=== PATIENT | male | born 1955 | race Caucasian/White ===

== ENCOUNTER 2024-07-02 18:56 | Emergency (ER) | payer OTHER, SELFPAY ==
[2024-07-02] VITALS (13 sets, daily range): BP systolic 140–182; BP diastolic 73–94; PULSE 57–73; RESP 14–21; TEMP 36.4; O2SAT 95–99
--- NOTE | ~2024-07-02 | XR_ITS ---
XR chest 2V DATE: 07/02/2024 19:20 INDICATION: Chest pain TECHNIQUE: PA and lateral views COMPARISON: None FINDINGS: Normal heart size. No hilar or mediastinal enlargement. Minimal thoracic aortic tortuosity. No pulmonary infiltrate or consolidation, pleural effusion or pulmonary vascular congestion or pneumo thorax is detected. Nipple shadows overlie the lower lung desai. Probable old lateral right fourth and fifth healed rib fractures. 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 Degenerative spurring of the thoracic spine. IMPRESSION: No active cardiopulmonary disease Reviewed, dictated and finalized at location A.
--- NOTE | 2024-07-02 18:58 | ECG_ITS ---
Test Date: 2024-07-02 19:08:04 Measurements Intervals [place] Rate: 75 P: 62 WA: 215 QRS: 40 QRSD: 102 T: 38 QT: 389 QTc: 435 Interpretive Statements SINUS RHYTHM WITH FIRST DEGREE AV BLOCK POSSIBLE RIGHT VENTRICULAR CONDUCTION DELAY [RSR (QR) IN V1/V2] POSSIBLE LEFT VENTRICULAR HYPERTROPHY [VOLTAGE CRITERIA PLUS LAE OR QRS WIDENING] No previous ECG available for comparison Electronically Signed On 07-03-2024 10:54:57 CDT by Edwin Paul M.D.
--- NOTE | 2024-07-02 19:04 | ED_ITS ---
HPI - Chest Pain General Chief Complaint: Chest Pain Stated Complaint: chest pain since yesterday Time Seen by Provider: 07/02/24 19:04 Source: patient and family Mode of arrival: ambulatory Limitations: no limitations History of Present Illness HPI narrative: patient presents with complaint of chest pain. He described yesterday as pressure and elevated on his chest but today describes it as a tightness. He st ates it was more intense yesterday at 9/10 in severity and today is only 4/10 severity. He notes that it was constant when he went to bed last night but he had been stubborn in presenting to the emergency department. At baseline he is relatively healthy and walks 3-4 miles daily. He has a past medical history of hypertension but denies any hyperlipidemia, prior AL, prior TIA, prior CVA. He is not a diabetic. He does not smoke. He denies any associated nausea or vomiting or diaphoresis. He states this has never happened before. He did feel short of breath today. No cardiac or respiratory history and does not follow with a naphtha washing system operator. No family history before the age of 65; states mother has a weak heart . has not noticed any bilateral or unilateral leg swelling. Has a primary care physician. Related Data Allergies Allergy/AdvReac Type Severity Reaction Status Date / Time Penicillins Allergy Hives Verified 07/02/24 19:10 [facility] Past Medical History Medical History (Updated 07/03/24 @ 00:00 by Mason Broussard) Hypertension Family History Family History (Updated 07/02/24 @ 19:19 by Demi Zavala MD) Mother Weak heart Social History Social History Social History: exercises daily Smoking status: Never smoker Exam Narrative: GENERAL: Well-appearing, well-nourished, and in no acute distress. HEAD: Normocephalic, atraumatic. EYES: Non injected, non icteric ENT: Nares clear, no rhinorrhea or epistaxis. NECK: Supple. CHEST: Speaking in full sentences. No respiratory distress. Lungs clear to auscultation bilaterally without appreciable consolidation, crackles, wheezes. HEART: Regular rate and rhythm. . ABDOMEN: Soft, nondistended. EXTREMITIES: Normal range of motion. No Bilateral lower extremity edema. SKIN: Warm, dry, no rash. NEURO: No focal deficits. Alert and oriented x3. PSYCH: Normal mood and affect. Course Vital Signs Vital signs: Vital Signs Temperature 97.6 F 07/02/24 19:03 Pulse Rate 73 07/02/24 19:03 Respiratory Rate 20 07/02/24 19:03 Blood Pressure 182/83 H 07/02/24 19:03 Pulse Oximetry 98 07/02/24 19:03 Oxygen Delivery Room Air 07/02/24 19:03 Temperature 97.6 F 07/02/24 19:03 Pulse Rate 63 07/02/24 23:20 Respiratory Rate 15 07/02/24 23:20 Blood Pressure 144/78 H 07/02/24 23:20 Pulse Oximetry 96 07/02/24 23:20 Oxygen Delivery Room Air 07/02/24 19:05 MDM - Chest Pain MDM Narrative Medical decision making narrative: patient presents with chest pain that was 9/10 in severity yesterday, constant the evening, and improving today. No prior cardiac history; no prior cardiac workup. In the emergency department he is afebrile with vital signs notable for hypertension. D-dimer is mildly elevated however can apply YEARS Algorithm : No Clinical signs of DVT: No Hemoptysis: No PE is most likely diagnosis: No D-dimer >1000ng/mL: No Result: PE Excluded; will not pursue further investigation into this HEART SCORE History 2 highly suspicious 1 moderately suspicious 0 slightly suspicious History score [address] depression/elevation not due to LBBB, LVH, or digoxin [address] depression but LBBB, LVH, nonspecific repolarization changes 0 normal ECG score +/- 1 borderline LVH on initial EKG Age 2 >/= 65 1 45-64 0 <45 Age score 2 Risk factors (HTN, hypercholesterolemia, DM, obesity with BMI >30, current smoker or cessation </=3mo), positive fam hx with parent or sibling with CVD before age 65, atherosclerotic disease (prior AL, PCI/CABG, CVA/TIA, or peripheral arterial disease) 2 >/= 3 risk factors or history of atherosclerotic dz 1 - 1-2 risk factors 0 no known risk factors Risk factor score 1 (HTN) Initial Troponin 2 >3 times normal limit 1 1-3 times normal limit 0 less than or equal to normal limit Troponin score 0 Total HEART Score : 4 versus 3 because partially / borderline LVH Patient is reassessed at 10:00 p.m. and states his pain is 0/10 in severity. Because the left ventricular hypertrophy is equivocal (and in fact, not technically present on second EKG) and 2nd troponin within normal limits, we discussed options of observation admission to pursue workup within the next 24 hours especially given patient has had no prior workup and the timeline for when this would be feasible in the outpatient setting is not guaranteed for certain. Shared decision making With patient and family member. ultimately, patient would prefer to pursue the workup in the outpatient setting. He has a primary care physician. He is also given contact referral information for naphtha washing system operator on-call. Patient is told several times that he can return at any time should symptoms recur, worsen, or if there are new symptoms. He verifies understanding and is in agreement. Differential Diagnosis Differential diagnosis: Likely stable angina, unstable angina pectoris, atypical chest pain, st elevation myocardial infarction, chest pain, biliary colic and other ( pulmonary embolism, pneumonia) Lab Data Attestation: I reviewed the patient's lab results. Lab results narrative: normocytic anemia with no prior for comparison isolated BUN elevation with normal creatinine 07/02/24 19:15 07/02/24 19:15 Labs: Lab Results 07/02/24 07/02/24 07/02/24 Range/Units 19:14 19:15 21:54 WBC 6.3 (4.5-10.0) K/mm3 RBC 4.66 (4.6-6.20) M/mm3 Hgb 12.5 L (14.0-18.0) g/dL Hct 37.7 L (42.0-52.0) % MCV 80.9 (80-100) fl MCH 26.8 (26-34) pg MCHC 33.2 (32-36) g/dl RDW 16.0 H (11.5-14.5) % Plt Count 275 (150-375) k/mm3 MPV 9.9 (7.4-10.4) fl Immature Gran % (Auto) 0.2 (0-0.5) % Neut % (Auto) 61.2 (45.5-73.1) % Lymph % (Auto) 26.5 (18.3-44.2) % [place] % (Auto) 8.8 H (2.6-8.5) % Eos % (Auto) 3.0 (0-4.4) % Baso % (Auto) 0.3 (0.2-1.2) % Lymph # (Auto) 1.68 (0.9-3.2) K/mm3 [place] # (Auto) 0.6 (0.1-0.6) K/mm3 Eos # (Auto) 0.2 (0-0.3) K/mm3 Baso # (Auto) 0.0 (0.0-0.1) K/mm3 Abs Immat Gran (auto) 0.01 (0.00-0.031) K/mm3 Absolute Neuts (auto) 3.9 (1.3-6.7) K/mm3 Absolute Nucleated RBC 0.000 (0.0-0.012) K/mm3 Nucleated RBC % 0.0 (0.0-0.2) % PT 15.9 H (11.1-14.7) Seconds INR 1.2 APTT 28.1 (22.3-36.8) Seconds D-Dimer 0.56 H (<0.48) ug/mL Sodium 138 (137-145) mmol/L Potassium 4.0 (3.4-5.0) mmol/L Chloride 103 (98-107) mmol/L Carbon Dioxide 27 (22-30) mmol/L Anion Gap 8 (4-12) mmol/L BUN 24 H (9-20) mg/dL Creatinine 1.00 (0.7-1.3) mg/dL Estim Creat Clear Calc 65 ml/min Estimated GFR > 60 (59 - ) Glucose 101 (65-110) mg/dL Calcium 9.0 (8.4-10.2) mg/dL Total Bilirubin 0.6 (0.2-1.3) mg/dL AST 26 (17-59) U/L ALT 21 (6-50) U/L Alkaline Phosphatase 86 (38-126) U/L Troponin I 0.013 0.015 (0.000-0.034) ng/mL NT-Pro-B Natriuret Pep 68 (19.9-100) pg/mL Total Protein 8.0 (6.3-8.2) g/dL Albumin 4.3 (3.5-5.1) g/dL Lipase 151 (23-300) U/L Imaging Data Attestation: I personally reviewed and interpreted this imaging study as follows: My impression: from normal without acute intrathoracic process on my independent interpretation Radiologist's impression: Impressions Chest X-Ray 07/02/24 19:23 IMPRESSION: No active cardiopulmonary disease ECG Data EKG #1: Attestation: I personally reviewed and interpreted this ECG as follows: ECG completion date: 07/02/24 ECG completion time: 19:08 Prior ECG tracings: not available for review ( no prior for comparison) Interpretation: normal sinus rhythm at a rate of 75 beats per minute. Prolonged UT interval at 2:15 a.m. milliseconds consistent with a first-degree AV block. QRS 102. QT/ QTC 389/417. Incomplete/BOrderline RBBB given QRS less [id number] but RSR' M- shaped pattern in V1-V3; slurred S wave in lateral leads (I, aVL And to a lesser extent V5-6). Left ventricular hypertrophy is suggested by S wave depth in V1 + tallest R wave height in V5-6 is >35mm though R wave in lead I + S wave in lead III is <25mm. good R-wave progression across the precordial leads. Questionable ST depression in lead 2 but appears normal in contiguous inferior leads 3 and AVF. No T-wave inversions EKG #2: Attestation: I personally reviewed and interpreted this ECG as follows: ECG completion date: 07/02/24 ECG completion time: 21:59 Interpretation: Sinus bradycardia rate of 53 beats per minute. UT interval prolonged at 247 milliseconds consistent with a first-degree AV block. QRS 101. QT/QTC 443/427. Good R-wave progression across the precordial leads. T-wave inversion isolated to lead 3 but otherwise upright in normal in contiguous inferior leads 2 and AVF. No other T-wave inversions. Pre populated algorithm suggests left ventricular hypertrophy but S wave depth in V1 + tallest R wave height in V5-6 is borderline 35mm but R wave in lead I + S wave in lead III is <25mm. Discharge Plan Discharge Clinical Impression: Chest pain, Normocytic anemia, Azotemia, First degree AV block Patient Disposition: Home, Self-Care Condition: Stable Instructions: Antibiotic Form, Chest Pain (DC), Anemia (ED) Additional Instructions: use medications as prescribed for pain. Follow-up with primary care physician. as we discussed, based on your risk factors, I do recommend following up in the outpatient setting for further workup. The name of naphtha washing system operator is listed below. Return to the emergency department if you have recurrence of symptoms or any new or worsening symptoms. Prescriptions: New ibuprofen 600 mg tablet 600 mg PO TID PRN (Reason: pain) Qty: 20 0RF acetaminophen 500 mg capsule 1,000 mg PO Q6H PRN (Reason: pain) Qty: 20 0RF Follow-up/Referrals: Aguila Calle MD [Physician] - ( cardiology) PHYSICIAN NOT ON STAFF,NONSTAFF [Primary Care Provider] - Stand Alone Forms: Work/School Release IP Time of Disposition: 22:42
[2024-07-02] MEDS: ASPIRIN 81 MG CHEWABLE TABLET 324 MG PO (19:14)
[2024-07-02 19:28] LABS: Basophils Percent Auto 0.3 % (0.2-1.2); Eosinophils Absolute Auto 0.2 K/mm3 (0-0.3); Hematocrit 37.7 % (42.0-52.0); Hemoglobin 12.5 g/dL (14.0-18.0); Immature Granulocyte Absolute 0.01 K/mm3 (0.00-0.031); Immature Granulocyte Percent A 0.2 % (0-0.5); Lymphocytes Absolute Auto 1.68 K/mm3 (0.9-3.2); Lymphocytes Percent Auto 26.5 % (18.3-44.2); Mean Corpuscular HGB Conc 33.2 g/dl (32-36); Mean Corpuscular Hemoglobin 26.8 pg (26-34); Mean Corpuscular Volume 80.9 fl (80-100); Mean Platelet Volume 9.9 fl (7.4-10.4); Monocytes Absolute Auto 0.6 K/mm3 (0.1-0.6); Monocytes Percent Auto 8.8 % (2.6-8.5); Neutrophils Absolute Auto 3.9 K/mm3 (1.3-6.7); Neutrophils Percent Auto 61.2 % (45.5-73.1); Platelet Count Result 275 k/mm3 (150-375); Red Blood Count 4.66 M/mm3 (4.6-6.20); White Blood Count 6.3 K/mm3 (4.5-10.0)
[2024-07-02 19:37] LABS: Alanine Aminotransferase 21 U/L (6-50); Albumin Level 4.3 g/dL (3.5-5.1); Alkaline Phosphatase 86 U/L (38-126); Anion Gap 8 mmol/L (4-12); Aspartate Amino Transferase 26 U/L (17-59); Bilirubin,Total 0.6 mg/dL (0.2-1.3); Blood Urea Nitrogen 24 mg/dL (9-20); Carbon Dioxide 27 mmol/L (22-30); Chloride 103 mmol/L (98-107); Estimated CRCL calculation 65 ml/min; Estimated Glomerular Filt Rate > 60; Glucose 101 mg/dL (65-110); Lipase 151 U/L (23-300); Sodium 138 mmol/L (137-145)
[2024-07-02 19:39] LABS: INR 1.2; Prothrombin Time 15.9 Seconds (11.1-14.7)
[2024-07-02 19:40] LABS: Partial Thromboplastin Time 28.1 Seconds (22.3-36.8)
[2024-07-02 19:46] LABS: NT Pro B Type Natriuretic Pept 68 pg/mL (19.9-100)
[2024-07-02 19:49] LABS: Troponin I 0.013 ng/mL (0.000-0.034)
[2024-07-02 20:40] LABS: D Dimer 0.56 ug/mL (<0.48)
--- NOTE | 2024-07-02 21:56 | ECG_ITS ---
Test Date: 2024-07-02 21:59:46 Measurements Intervals [place] Rate: 53 P: 64 AR: 247 QRS: 44 QRSD: 101 T: 30 QT: 443 QTc: 420 Interpretive Statements SINUS BRADYCARDIA WITH FIRST DEGREE AV BLOCK POSSIBLE LEFT VENTRICULAR HYPERTROPHY [VOLTAGE CRITERIA PLUS LAE OR QRS WIDENING] NONSPECIFIC T-WAVE ABNORMALITY Compared to ECG 07/02/2024 19:08:04 T-wave abnormality now present Sinus rhythm no longer present Electronically Signed On 07-03-2024 10:58:32 CDT by Edwin Paul M.D.
[2024-07-02 22:22] LABS: Troponin I 0.015 ng/mL (0.000-0.034)
--- NOTE | 2024-07-02 22:26 | PC.NURSE ---
2100 Pt reports that his cp is now 0/10.
== END 2024-07-02 23:21 | disposition home or self-care (01) ==
PROVIDERS: Preventive Medicine Aerospace Medicine; Emergency Provider Student in an Organized Health Care Education/Training Program
DX: R07.9 Chest pain, unspecified (principal); D64.9 Anemia, unspecified; R79.89 Other specified abnormal findings of blood chemistry; I44.0 Atrioventricular block, first degree; I10 Essential (primary) hypertension
CPT/HCPCS: 36415; 71046; 80053; 83690; 83880; 84484; 85025; 85380; 85610; 85730; 93005; 99284; A9270

== ENCOUNTER 2024-12-18 | Emergency (ER) | payer MEDICARE, SELFPAY ==
[2024-12-18] VITALS (8 sets, daily range): BP systolic 142–181; BP diastolic 75–87; PULSE 75–94; RESP 16–21; TEMP 36.7; O2SAT 95–99
--- NOTE | 2024-12-18 | ECG_ITS ---
Test Date: 2024-12-18 00:14:49 Measurements Intervals [place] Rate: 91 P: 52 CO: 205 QRS: 38 QRSD: 98 T: 43 QT: 365 QTc: 450 Interpretive Statements SINUS RHYTHM POSSIBLE LEFT ATRIAL ENLARGEMENT BORDERLINE AV CONDUCTION DELAY INCOMPLETE RIGHT BUNDLE [place] BLOCK POSSIBLE ANTERIOR MYOCARDIAL INFARCTION , OF INDETERMINATE AGE ABNORMAL ECG COMPARED WITH PRIOR ECG 07-02-24 21:59 HEART RATE HAS INCREASED Electronically Signed On 12-18-2024 09:19:48 CDT by Feroz Jones D.O.
--- NOTE | ~2024-12-18 | XR_ITS ---
Clinical Indication: Chest pain PA and lateral views of the chest: Comparison: 07/02/2024 Findings: The lungs are clear, without evidence of focal consolidation or pleural effusion. Cardiome diastinal silhouette is within normal limits. Bones and soft tissues are unremarkable. Impression: Normal chest. Reviewed, dictated and finalized at location . Impression: Normal chest.
--- OUTSIDE RECORDS SUMMARY | 2024-12-18 00:02 | XMS_ITS | Clinical Summary ---
Author Organization [facility] Address [address] [place] [address] Care Team Providers Care Applications Administrator Name Role Phone Randall Michelle MD Unavailable Randall Wilks MD Primary Care Provider Tramaine Smith MD Unavailable [phone] Allergies Active Allergy Reactions Criticality Noted Date Comments Penicillin Hives,Swelling Medium 06/19/2021 Medications tamsulosin (FLOMAX) 0.4 mg extended release capsule TAKE 1 CAPSULE (0.4MG TOTAL) BY MOUTH DAILY 100 capsule 1 08/05/20 24 Active meloxicam (MOBIC) 15 mg tablet TAKE 1 TABLET (15MG TOTAL) BY MOUTH DAILY 90 tablet 1 08/31/20 24 Active terbinafine (LamiSIL) 250 mg tabletIndicati ons:Onychomyco sis TAKE 1 TABLET (250 MG TOTAL) BY MOUTH DAILY FOR TOENAIL INFECTION 30 tablet 2 11/07/19 25 Active losartan (COZAAR) 50 mg tablet TAKE 1 TABLET (50MG TOTAL) BY MOUTH NIGHTLY 90 tablet 1 11/21/19 25 Active losartan (COZAAR) 50 mg tablet TAKE 1 TABLET (50MG TOTAL) BY MOUTH NIGHTLY 90 tablet 1 05/01/20 24 025 Discontinued Active Problems Problem Noted Date Diagnosed Date Other chest pain 08/24/2024 Elevated LDL cholesterol level 07/06/2024 Assessment & Plan (07/06/2024 9:08 AM CDT): Lab Results Component Value Date CHOL 173 07/04/2024 CHOL 177 06/29/2023 Lab Results Component Value Date HDL 54 07/04/2024 HDL 55 06/29/2023 Lab Results Component Value Date LDL 104 (H) 07/04/2024 LDL 106 (H) 06/29/2023 Lab Results Component Value Date TRIG 60 07/04/2024 TRIG 73 06/29/2023 Not at goal of LDL <100 Not currently on statin Overweight (BMI 25.0-29.9) 07/06/2024 Assessment & Plan (07/06/2024 9:09 AM CDT): Wt Readings from Last 3 Encounters: 07/06/24 91.6 kg (202 lb) 06/20/24 91.6 kg (202 lb) 02/04/24 89.4 kg (197 lb) Increasing weight BMI plan includes nutrition and exercise Epidermoid cyst of skin of back 01/17/2024 Screening for colon cancer 12/23/2023 Dermoid cyst of skin of back 06/02/2023 Aftercare following right hip joint replacement surgery 08/25/2021 Primary osteoarthritis of right hip 07/29/2021 Overview (07/29/2021): Added automatically from request for surgery [id number] Hypertension Assessment & Plan (07/06/2024 9:09 AM CDT): Lab Results Component Value Date GLUCOSE 92 07/04/2024 CALCIUM 8.7 07/04/2024 SODIUM 140 07/04/2024 POTASSIUM 4.0 07/04/2024 CO2 27 07/04/2024 CHLORIDE 105 07/04/2024 BUNSER 17 07/04/2024 CREATININE 0.99 07/04/2024 At goal. Continue Losartan 50mg as Rx. Recommend heart-healthy diet and regular exercise. Immunizations Immunization Administration Dates Next Due Influenza, Quad, Adjuvantate d, Intramuscular 06/23/2021 Influenza, Quadrivalent, Hig h Dose, Preservative Free, Intrr 06/14/2023,07/10/2022 Influenza, Quadrivalent, Spl it, Intramuscular 07/05/2019 Influenza, Quadrivalent, Spl it, Preservative Free, Intramuscular 07/05/2020,07/06/2018,07/09/2017,07/01,2015,07/10/2014,06/14/2013 ,07/01/2011 Influenza, Trivalent, High D ose, Split, Preservative Free, Intramuscular 06/20/2024,06/28/2020 Influenza, Trivalent, Preser vative Free, Intramuscular 06/29/2016 Pfizer SARS-CoV-2 Monovalent Vaccination (12+ Yrs) PURPLE 11/29/2020 Pneumococcal Conjugate Pcv20 06/14/2023 Pneumococcal Polysaccharide PPV23 07/06/2003 Tdap 07/01/2011 ZOSTER Recombinant 06/23/2021 Surgical History Surgery Date Site/Laterality Comments KNEE SURGERY 09/06/1992 - 09/05/1993 Left Medical History Medical History Date Comments Hypertension Family History Medical History Relation Name Comments Cancer Other Gout Other Relation Name Status Comments Other Social History Tobacco Use Types Packs/Day Years Used Date Smoking Tobacco: Never Passive Smoke Exposure: Never Smokeless Tobacco: Never Tobacco Cessation:Counseling Given: Not Answered AUDIT-C Answer Date Recorded Q1: How often do you have a drink containing alc ohol? 2-3 times a week 07/06/2024 Q2: How many drinks containi ng alcohol do you have on a typical day when you are drinking? 1 or 2 07/06/2024 Q3: How often do you have si x or more drinks on one occasion? Never 07/06/2024 PHQ-2 Answer Date Recorded PHQ-2 Total Score (If total score is 3 or more points, staff should administer the PHQ-9) 0 07/06/2024 Personal Safety Answer Date Recorded Have you ever been in or are you currently in a harmful physical or emotional relationship or is someone making you feel afraid or unsafe? Denies 02/04/2024 Sex and Gender Information Value Date Recorded Sex Assigned at Not on file Legal Sex Male 12:33 PM [employer]UC[employer] Gender Identity Not on file Sexual Orientation Not on file Obstetrics History Last Filed Vital Signs Vital Sign Reading Time Taken Comments Blood Pressure 190/88 08/24/2024 8:52 AM [employer] Pulse 75 08/24/2024 8:52 AM [employer]UC[employer] Temperature 36.7 C (98 F) 06/20/2024 3:07 PM CDT Respiratory Rate 16 08/24/2024 8:52 AM PROF[employer]UC[employer] Oxygen Saturation 98% 08/24/2024 8:52 AM [employer]UC[employer] Inhaled Oxygen Concentration - - Weight 90.7 kg (200 lb) 08/24/2024 8:52 AM [employer]UC[employer] Height 180.3 cm (5' 11 ) 08/24/2024 8:52 AM [employer]UCATION Body Mass Index 27.89 08/24/2024 8:52 AM PROFESSOR [employer] EDUCATION Plan of Treatment Upcoming Encounters Date Type Department Care Team (Late st Contact Info) Description 12/21/2024 11:00 AM CDT Hospital Encounter [address] [address] Yudi Jules MD [address] [facility] [address] [place] [address] 12/21/2024 11:00 AM CDT - 12/21/2024 11:30 AM CDT Surgery [address] [address] Yudi Jules MD [address] [facility] [address] [place] [address] COLONOSCOPY Scheduled Procedures Name Priority Associated Diagnoses Date/Ti me COLONOSCOPY Screening for colon cancer 12/21/2024 11:00 AM CDT Health Maintenance Due Date Last Done Comments Colon Cancer Screening-Colonoscopy 1955 Hepatitis C Screening 1955 Hepatitis B Screening 1972 DTaP/Tdap/Td Vaccine (2 - Td or Tdap) 07/01/2021 07/01/2011 Zoster Vaccine (2 of 2) 08/18/2021 06/23/2021 Covid-19 Vaccine (6 - 2023-2 5 season) 2024 02/10/2022, 09/23/2021, 11/29/2020, Additional history exists Well Visit 65+ 06/20/2025 06/20/2024, 06/14/2023 Depression Screening 07/06/2025 07/06/2024, 06/20/2024, 06/12/2022 Fall Risk Assessment 07/06/2025 07/06/2024, 06/20/2024, 02/04/2024, Additional history exists Pneumococcal vaccine 65+ Completed 06/14/2023, 06/08 Influenza Vaccine Completed 06/20/2024, , 07/10/2022, Additional history exists Prostate Cancer Screening-PSA Discontinued 07/04/2024, 06/29/2023 Medical Devices Implanted Type Area Distributor Publications Device Identifier Shelf Expiration Date Model / Serial / Lot [employer] [id number] Cameron 56mm 36mm Hip Neutral Liner Acetabular Altrx Sterile Latex Free - [id number] Implanted:Qty: 1 on 08/11/2021 by Randall Michelle MD at [facility] Right: Hip [employer] 04/05/2026 [id number] / / [id number] [employer] [id number] Cameron 56mm Sector Hip Shell Acetabular Gription Sterile Latex Free - [id number] Implanted:Qty: 1 on 08/11/2021 by Randall Michelle MD at [facility] Right: Hip [employer] 05/06/2031 [id number] / / [id number] [employer] [id number] Actis L111 Mm Collar Hip 8 High Offset Stem Femoral - [id number] Implanted:Qty: 1 on 08/11/2021 by Randall Michelle MD at [facility] Right: Hip [employer] 12/04/2030 [id number] / / [id number] [employer] [id number] Articul/Jared 36mm Cementless Hip +1.5mm 12/14 Taper Head Femoral Latex Free - [id number] Implanted:Qty: 1 on 08/11/2021 by Randall Michelle MD at [facility] Right: Hip [employer] 07/06/2026 [id number] / / [id number] Procedures Procedure Name Priority Date/Time Associated Diagnosis Comments PSA SCREEN Routine 07/04/2024 7:45 AM CDT Urine frequency from Last 3 Months or Most Recently Relevant to Health Maintenance Results * PSA screen (07/04/2024 7:45 AM CDT) PSA 3.26 < OR = 4.00 ng/mL [facility] Comment: The total PSA value from this assay system is standardized against the WHO standard. The test result will be approximately 20% lower when compared to the equimolar-standardized total PSA ([place]). Comparison of serial PSA results should be interpreted with this fact in mind. This test was performed using the Siemens chemiluminescent method. Values obtained from different assay methods cannot be used interchangeably. PSA levels, regardless of value, should not be interpreted as absolute evidence of the presence or absence of disease. Blood 07/04/2024 7:45 AM CDT 07/04/2024 7:45 AM CDT [facility] - 07/05/2024 7:35 AM CDT FASTING:YES FASTING: YES Randall Wilks MD LAB BLOOD ORDERABLES Fi nal Result [facility] [address] [address] [place] [address] from Last 3 Months or Most Recently Relevant to Health Maintenance Insurance MEDICARE [facility] Address: [facility] [address] [place] [address] [employer] MEDICARE GOLD [employer] MEDICARE GOLD Care Teams Applications Administrator Relationship Specialty Start Date End Date Randall Wilks MD [address] [facility] [address] [address] PCP - General Internal Medicine 06/12/22 Randall Michelle MD Surgeon Orthopedic Surgery 08/11/21 [place] [address] [address] [facility] [address] [address] Surgeon General Surgery 02/04/24
--- OUTSIDE RECORDS SUMMARY | 2024-12-18 00:02 | XMS_ITS | Referral Summary ---
[facility] Address [address] [place] [address] Care Team Providers Care Riddler Operator Name Role Phone Randall Michelle MD Unavailable [phone] Randall Wilks MD Primary Care Provider Tramaine Smith MD Unavailable [phone] Allergies Active Allergy Reactions Criticality Noted Date [...] (07/29/2021): Added automatically from request for surgery [id number] Hypertension Assessment & Plan (07/06/2024 9:09 AM [...] PPV23 07/06/2003 Tdap 07/01/2011 ZOSTER Recombinant 06/23/2021 Social History Tobacco Use Types Packs/Day Years [...] on file Legal Sex Male 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 Gender Identity Not on file Sexual Orientation Not on file Last Filed Vital Signs Vital Sign Reading Time Taken Comments Blood Pressure 190/88 08/24/2024 8:52 AM CUSTOMER SERVICE CORRESPONDENCE CLERK Pulse 75 08/24/2024 8:52 AM CUSTOMER SERVICE CORRESPONDENCE CLERK Temperature 36.7 C (98 F) 06/20/2024 3:07 PM CDT Respiratory Rate 16 08/24/2024 8:52 AM CUSTOMER SERVICE CORRESPONDENCE CLERK Oxygen Saturation 98% 08/24/2024 8:52 AM CUSTOMER SERVICE CORRESPONDENCE CLERK Inhaled Oxygen Concentration - - Weight 90.7 kg (200 lb) 08/24/2024 8:52 AM CUSTOMER SERVICE CORRESPONDENCE CLERK Height 180.3 cm (5' 11 ) 08/24/2024 8:52 AM CUSTOMER SERVICE CORRESPONDENCE CLERK Body Mass Index 27.89 08/24/2024 8:52 AM CUSTOMER SERVICE CORRESPONDENCE CLERK Plan of Treatment Upcoming Encounters Date Type Department Care Team (Late st Contact Info) Description 12/21/2024 11:00 AM CDT Hospital Encounter [facility] [address] [place] [address] Yudi Jules MD [address] [place] [address] 12/21/2024 11:00 AM CDT - 12/21/2024 11:30 AM CDT Surgery [address] [address] Yudi Jules MD [address] [place] [address] COLONOSCOPY Scheduled Procedures Name Priority Associated Diagnoses Date/Ti me COLONOSCOPY Screening for colon cancer 12/21/2024 11:00 AM CDT Medical Devices Implanted Type Area Upholstery Estimator Device Identifier Shelf Expiration Date Model / Serial / Lot [employer] [id number] Clear 56mm 36mm Hip Neutral Liner Acetabular Altrx Sterile Latex Free - [id number] Implanted:Qty: 1 on 08/11/2021 by Randall Michelle MD at [facility] Right: Hip [employer] 04/05/2026 [id number] / / [id number] [employer] [id number] Clear 56mm Sector Hip Shell Acetabular Gription Sterile Latex Free - [id number] Implanted:Qty: 1 on 08/11/2021 by Randall Michlele MD at [facility] Right: Hip [employer] 05/06/2031 [id number] / / [id number] [employer] [id number] Actis L111 Mm Collar Hip 8 High Offset Stem Femoral - [id number] Implanted:Qty: 1 on 08/11/2021 by Randall Michelle MD at [facility] Right: Hip [employer] 12/04/2030 [id number] / / [id number] [employer] [id number] Articul/Jared 36mm Cementless Hip +1.5mm 08/19 Taper Head Femoral Latex Free - [id number] Implanted:Qty: 1 on 08/11/2021 by Randall Michelle MD at [facility] Right: Hip [employer] 07/06/2026 [id number] / / [id number] Procedures Procedure Name Priority Date/Time Associated Diagnosis Comments PSA SCREEN Routine 07/04/2024 7:45 AM CDT Urine frequency from Last 3 Months or Most Recently Relevant to Health Maintenance Results * PSA screen (07/04/2024 7:45 AM CDT) PSA 3.26 < OR = 4.00 ng/mL Work For [facility] Comment: The total PSA value from this assay system is standardized against the WHO standard. The test result will be approximately 20% lower when compared to the equimolar-standardized total PSA ([place]). Comparison of serial PSA results should be interpreted with this fact in mind. This test was performed using the Siemens chemiluminescent method. Values obtained from different assay methods cannot be used interchangeably. PSA levels, regardless of value, should not be interpreted as absolute evidence of the presence or absence of disease. Blood 07/04/2024 7:45 AM CDT 07/04/2024 7:45 AM CDT Narrative [facility] - 07/05/2024 7:35 AM CDT FASTING:YES FASTING: YES us Randall Wilks MD LAB BLOOD ORDERABLES Fi nal Result [facility] [address] [place] [address] from Last 3 Months or Most Recently Relevant to Health Maintenance Insurance MEDICARE AETNA MEDICARE GOLD AETNA MEDICARE GOLD Care Teams Riddler Operator Relationship Specialty Start Date End Date Randall Wilks MD [address] [place] [address] [place] [address] PCP - General Internal Medicine 06/12/22 Randall Michelle MD Surgeon Orthopedic Surgery 08/11/21 [place] [address] [address] Surgeon General Surgery 02/04/24
--- OUTSIDE RECORDS SUMMARY | 2024-12-18 00:03 | XMS_ITS | Continuity of Care Document ---
Author Organization Formerly [facility] Address [address] [place] [address] [place] [address] Phone Care Team Providers Care Political Director Name Role Phone Charly Aguayo MD Unavailable Unavailable Allergies, Adverse Reactions, Alerts Substance Reaction Status Criticality PENICILLIN Active No Information Medications Medication Instructions Dosage Effective Dates (start - stop) Status Comments meloxicam 7.5 mg tablet take 1 tablet by oral route 2 times every day 7.5 MG - Active losartan 50 mg tablet take 1 tablet by o ral route every day 50 MG - Active Procedures Procedure Date Remove Eyelid Lining Lesion Office/outpatient Visit, Est Remove Eyelid Lining Lesion Office/outpatient Visit, New Advance Directives Directive Yes / No Effective Date File Name No Information Encounters Encounter Description Practice Location Reason(s) For Visit Diagnoses Date Provider Providers Copied on Encounter Office/outpa tient Visit, Est [facility], [address] [place] [address] [address], [place], [place], [id number], [place] tel:[phone] [address] [place] Professional Bump OD (chief complaint) Conjunctival cyst of right eyePapilloma of right eyelidPinguecu la, bilateralAge-r elated nuclear cataract, bilateral Sep-0 0 Olivier Parks. [address] [facility], [facility] [place], [id number], [place]. tel:[phone] Referring Provider: Moy Santoyo OD, [facility] [address], [address]. tel:[phone] Office/outpa tient Visit, [facility], [address], [place], [place], [address], tel:[phone] SEC Bud [place] Professional growth on eye (chief complaint) Conjunctival cyst of right eyeAge-related nuclear cataract, bilateralPapil dianne of right eyelidPinguecu la, bilateral Mar-0 -202 0 Olivier Parks. [address] [facility] [place], [address], [place]. tel:[phone] Referring Provider: Moy Santoyo OD, [address], [address]. tel:[phone] [facility], [address], [place], [place], [address], tel:[phone] SEC [address] MEDELLIN Professional No Information Fe- 0 Olivier Parks. [address], [facility] [place], [address], [place]. tel:[phone] Referring Provider: Moy Santoyo OD, [address], [address]. tel:[phone] Family History Family Member Type Diagnosis Age At Onset No Information Payers Payer name Insurance type Covered green party ID Authorjesse nuno(s) [facility] [id number] Social History Type Description Quantity Date Captured Comments Alcohol Use Details Caffeine Use Details Tobacco Use Status Current non-smoker Smoking Status Never smoker Non-Smoking Tobacco Use Details : No Details Available : No Details Available Sex Male Chief Complaint And Reason For Visit From encounter dated '05/07/2020 15:15'. Bump OD (chief complaint). Description: The 64 year old male presents for evaluation of Bump OD. HxConjunctival Cyst OD with I&D. Pt reports I&D OD did not work from 11/23. Pt reportscyst OD seems to have gotten bigger. Pt denies pain and vision changes OD. Pt reports OD is not cosmetically pleasing. Pt would like to have I&D OD today if needed. Reason For Referral Reason For Referral No Information Plan Of Treatment Date Type Action Status Patient Education Pterygium and Pinguecul a: Care Instru~ completed Patient Education Pterygium and Pinguecul a: Care Instru~ completed History Of Present Illness Encounter Date Complaint History Of Prese nt Illness Bump OD The 64 year old male presents for evaluation of Bump OD. Hx Conjunctival Cyst OD with I&D. Pt reports I&D OD did not work from 11/23. Pt reports cyst OD seems to have gotten bigger. Pt denies pain and vision changes OD. Pt reports OD is not cosmetically pleasing. Pt would like to have I&D OD today if needed. growth on eye The 64 year old male presents for evaluation of growth on eye in the right eye. Hx of soft CL wear. Pt reports he has growth on white spot of OD, temporal edge, x 2-3 yrs, and it seems to have grown a little bit in the past yr. Pt denies using any gtts and no pain or irritation, OU. Functional Status Date Functional Assessmen t No Information Instructions Date Instruction Additional Infor mg Impression/Plan Impression/Plan Assessments Type Assessment Date assessment Conjunctival cyst of right eye S assessment Papilloma of right eyelid assessment Pinguecula, bilateral 0 assessment Age-related nuclear cataract, bi lateral Patient Care Teams Name Effective Dates (start - stop) Status Members No Information
--- OUTSIDE RECORDS SUMMARY | 2024-12-18 00:03 | XMS_ITS | Encounter Summary ---
Author Organization [facility] Address [address] [place] [address] Care Team Providers Care Ham Curer Name Role Phone Unavailable Primary Care Provider Unavailabl e Encounter Details Date Type Department Care Team (Late st Contact Info) Description 04/17/2022 Lab Requisition [facility] DermPath Lab [address] [facility], [place] [address] Antonio Holman MD [address] [place] [address] Social History Tobacco Use Types Packs/Day Years Used Date Smoking Tobacco: Never Assessed Sex and Gender Information Value Date Recorded Sex Assigned at Not on file Legal Sex Male 1:09 PM CDT Gender Identity Not on file Sexual Orientation Not on file documented as of this encounter Plan of Treatment Not on file documented as of this encounter Procedures Procedure Name Priority Date/Time Associated Diagnosis Comments DERMATOPATHOLOGY Routine 04/16/2022 12:0 0 AM CDT documented in this encounter Results * DERMATOPATHOLOGY (04/16/2022 12:00 AM CDT) Case Report Dermatopathology Report Case: [id number] Authorizing Provider: Antonio Holman MD Collected: 04/16/2022 12:00 AM Ordering Location: [facility] DermPath Lab Received: 04/17/2022 08:22 AM Pathologist: Latrice Roberto MD Specimen: Skin, left lower eyelid 2 1:17 PM CDT DERMATOPATHOLOGY LABORATORY Final Diagnosis Specimen A. SKIN, left lower eyelid: ACROCHORDON (SOFT FIBROMA, SKIN TAG) (L91.8) 2 1:17 PM CDT DERMATOPATHOLOGY LABORATORY Clinical History Tag, Verruca, Pedunculated SK, R/O Neoplasm 2 1:17 PM CDT DERMATOPATHOLOGY LABORATORY Gross Description Specimen A: Received is one formalin filled container labeled with the patient's name and designated left lower eyelid. The specimen consists of a shave biopsy measuring [id number]. Jar 0. 1:17 PM CDT DERMATOPATHOLOGY LABORATORY Microscopic Description Specimen A. SKIN, left lower eyelid: There is a gently folded epidermis surrounding a connective tissue core in which fat and collagen are intermingled. 2 1:17 PM CDT DERMATOPATHOLOGY LABORATORY Disclaimer An external and internal positive and negative controls are appropriate for the histochemical, immunohistochemical and immunofluorescence stain(s) in this case (if any), except where stated explicitly. The performance characteristics of the stain(s) cited in this report were developed and its performance characteristic determined by the Dermatopathology Laboratory at [facility], directed by Dr. Nuvia Chowdhury. These tests need not be, and therefore are not, approved by the [place] Food and Drug Administration. The tests are used for clinical purposes. Billing Codes Specimen Charges Stain Charges 86976 1 2 1:17 PM CDT DERMATOPATHOLOGY LABORATORY Embedded Images 2 1:17 PM CDT DERMATOPATHOLOGY LABORATORY Pathology/Cytolog y TISSUE SPECIMEN FROM SKIN / Unknown 04/16/2022 04/17/2022 8:22 AM CDT Antonio Holman MD LAB - PATHOLOGY/CYTOLOGY ORDERAB LES Final Result DERMATOPATHOLOGY LABORATORY [facility] - Department of Dermatology [facility] Medicine [address] [place] [address], [address] [place] [address], [facility] [phone] documented in this encounter Visit Diagnoses Not on filedocumented in this encounter
--- OUTSIDE RECORDS SUMMARY | 2024-12-18 00:03 | XMS_ITS | Clinical Summary ---
Author Organization [facility] Address [address] [facility] [place] [address] Care Team Providers Care Sleeve Ironer Name Role Phone Unavailable Primary Care Provider Unavailabl e Source Comments [facility],non-owned Affiliates and Associated Physician Practices is amultiple site organization consisting of ambulatory clinics and hospital sitesin [place], [place], [place] and [place]. This disclosure is being madepursuant to the Care Everywhere program and may not contain all information available regarding this patient. Last updated 18.[facility] Social History Tobacco Use Types Packs/Day Years Used Date Smoking Tobacco: Never Assessed Sex and Gender Information Value Date Recorded Sex Assigned at Not on file Legal Sex Male 1:09 PM CDT Gender Identity Not on file Sexual Orientation Not on file Plan of Treatment Health Maintenance Due Date Last Done Comments COLOGUARD (AGES 45-75) - COL ON CA SCREENING 1954 COLON MONITORING 1954 COLONOSCOPY - COLON CA SCREENING 1954 CT COLONOGRAPHY - COLON CA SCREENING 1954 Colorectal Cancer Screening 1954 FIT - COLON CA SCREENING 1954 FLEX SIG - COLON CA SCREENING 1954 LIPID TESTING 1954 HEPATITIS C SCREENING 06/21/1972 DTAP/TDAP/TD VACCINES (1 - Tdap) 1973 PNEUMOCOCCAL VACCINE 50+ (1 of 1 - PCV) 2004 ZOSTER VACCINE (1 of 2) 2004 COVID-19 VACCINE ( - 2023-2 5 season) 2024 DEPRESSION SCREENING 09/06/2024 INFLUENZA VACCINE (Season Ended) 2025 Respiratory Syncytial Virus (RSV) Vaccine Pt: or over 60 yrs (1 - 1-dose 75+ series) 2029 HEPATITIS B VACCINE Aged Out No longe r eligible based on patient's age to complete this topic HIB VACCINE Aged Out No longer eligi ble based on patient's age to complete this topic HPV VACCINE Aged Out No longer eligi ble based on patient's age to complete this topic MENINGOCOCCAL (Group B) VACC INE SHARED DECISION-MAKING Aged Out No longer eligibl e based on patient's age to complete this topic MENINGOCOCCAL GROUPS A/C/Y/W VACCINE Aged Out No longer eligible b ased on patient's age to complete this topic Insurance [id number]
--- OUTSIDE RECORDS SUMMARY | 2024-12-18 00:03 | XMS_ITS | Data Portability ---
Author Organization [facility] Dermato logy, Main Office Address [address] [facility] [address] [place] [place] [address] Assessment No assessment recorded. Plan of Treatment Reminders Order Date Submit Date Provider Last Modified By Organization Details Last Modified Time Details Appointments None record ed. Lab None record ed. Referral None record ed. Procedures None record ed. Surgeries None record ed. Imaging None record ed. Medication Orders None record ed. Patient TargetsNo targets recorded. Patient Instructions Encounter Date Encounter Id Patient Instructions Last Modified By Organization Details Last Modified Time 03/18/2023 [id number] Ref for cysts. Sun precautions revd. SPF 30. Monthly self-exam. Annual epitts4 Not available 03/18/2023 14:55:25 Reason for Referral None Reported. Results Created Date Observation Date Name Description Value Unit Range Abnormal Flag Note LastModifiedBy Organization Detail LastModifiedTime Result Notes None recorded. Problems Name Problem SNOMED Code Status Onset Date Resolution Date Notes Provider Name and Address Organization Details Recorded Time Seborrheic keratosis 582422806 Active 2021 Antonio Holman MD [address] [facility] [address], [place], [address], [facility] 2 13:02:40 Verruca vulgaris 20812779 Active 2021 Antonio Holman MD [address], [place], [address], [facility] 2 13:02:48 Milia 205655577 Active 2021 Antonio Holman MD [address] [facility] [address], [place], [address], [facility] 2 13:02:52 Epidermoid cyst of skin 940777609 Active 2022 Antonio Holman MD [address], [place], [address], [facility] 3 14:54:45 Melanocytic nevus of trunk 700130723 Active 2022 Antonio Holman MD [address], [place], [address], [facility] 3 14:54:49 Chronic effect of ultraviolet radiation on normal skin 624565206 Active 2022 Antonio Holman MD [address], [place], [address], [facility] 3 14:55:03 Skin tag 762504006 Active 2023 Antonio Holman MD [address], [place], [address], [facility] 4 15:59:32 Neoplasm of uncertain behavior of skin 88494629 Active 2020 Antonio Holman MD [address] [facility] [address], [place], [address], [facility] 1 14:53:35 Problem Notes None recorded. Medical Equipment None Reported. Allergies Allergen ID Allergen Name Allergen Category Reaction Reaction Severity Criticality Documentation Date Start Date Code Code System Note Provider Name and Address Organization Details Recorded Time 2258 Product containin g penicilli n (product) medicatio n Not available Not available Not available 10/30/2019 74437 8001 SNOMED Bg [facility] Derm[facility]ology 0 15:02:55 Medications Name Sig Start Date Stop Date Status Note LastModified by Organization Details LastModified Time losartan 50 mg tablet TAKE 1 TABLET (50MG TOTAL) BY MOUTH NIGHTLY active Not Available Not Available No t Available doxycycline hyclate 100 mg capsule active Not Available Not Available N ot Available clindamycin HCl 300 mg capsule TAKE 2 CAPSULES BY MOUTH 1 HOUR PRIOR TO DENTAL APPOINTMENT active Not Available Not Available Not Available hydrocodone 5 mg-acetamino phen 325 mg tablet active Not Available Not Available Not Available meloxicam 15 mg tablet TAKE 1 TABLET (15MG TOTAL) BY MOUTH DAILY active Not Available Not Available Not Available Vitamin C 500 mg chewable tablet active Not Available Not Available Not Available sulfamethoxa zole 800 mg-trimethop rim 160 mg tablet TAKE 1 TABLET BY MOUTH TWICE DAILY active Not Available Not Available No t Available oxycodone-ac etaminophen 5 mg-325 mg tablet active Not Available Not Available Not Available terbinafine HCl 250 mg tablet TAKE 1 TABLET (250 MG TOTAL) BY MOUTH DAILY FOR TOENAIL INFECTION active Not Available Not Available No t Available aspirin 325 mg tablet,delay ed release active Not Available Not Available N ot Available tamsulosin 0.4 mg capsule TAKE 1 CAPSULE (0.4MG TOTAL) BY MOUTH DAILY active Not Available Not Available Not Available polymyxin B sulfate 10,000 unit-trimeth oprim 1 mg/mL eye drops INSTILL 1 DROP INTO AFFECTED EYE 4 TIMES DAILY active Not Available Not Available No t Available methylpredni solone 4 mg tablets in a dose pack active Not Available Not Available No t Available ondansetron 4 mg disintegrati ng tablet active Not Available Not Available No t Available meloxicam active Not Available Not Sheila ilable Not Available losartan active Not Available Not Avai lable Not Available FeroSul 325 mg (65 mg iron) tablet active Not Available Not Available Not Available Stool Softener-Sti mulant Laxative 8.6 mg-50 mg tablet active Not Available Not Available Not Available Vitals None Recorded Social History None recorded. Functional Status None recorded. Mental Status None recorded. Family History Nothing Reported. Medical History No medical history recorded. Past Encounters Encounter ID Performer Location Encounter Start Date Encounter Closed Date Diagnosis/Indication Diagnosis SNOMED-CT Code Diagnosis ICD10 Code Diagnosis Note [id number] Antonio Holman MD Main Office [address] [place] [address] [address] [place] [place] [phone] 03/18/2023 14:41:22 04/05/2023 11:14:54 Epidermoid cyst of skin 938877926 L72.0 Melanocyti c nevus of trunk 329613872 D22.5 Seborrheic keratosis 394 105052 L82.1 Chronic ef fect of ultraviolet radiation on normal skin 046211213 L57.8 Health Concerns Section Related Observation LastModified by Organization Cristina dhaliwal LastModified Time None Recorded Concern Status LastModified by Organization Details LastModified Time None Recorded Advance Directives Directive None Recorded Payers Encounter Date Sequence Insurance Name Policy Number Policy Chapman Covered Member ID Chapman Member ID Guarantor Name 03/18/2023 1 [employer] - PRIME (MEDICARE REPLACEMENT/ ADVANTAGE - HMO) [id number] Reid Orozco [id number] Reid Orozco Notes Date Note Type Note Provider Name and Address Organization Details Recorded Time 03/18/2023 text/html [facility] Ref for cysts on back. Gen exam. Antonio Holman MD [address] [facility] [address], [place], [address], [facility] 03/18/2023 14:55:37
--- OUTSIDE RECORDS SUMMARY | 2024-12-18 00:03 | XMS_ITS | Encounter Summary ---
Author Organization [facility] Address [address] [place] [address] Care Team Providers Care Double Cutter Name Role Phone Unavailable Primary Care Provider Unavailabl e Encounter Details Date Type Department Care Team (Late st Contact Info) Description 02/21/2021 Lab Requisition [facility] D[facility] Lab [address], [place] [id number] Antonio Holman MD [facility] [id number] Social History Tobacco Use Types Packs/Day Years [...] Priority Date/Time Associated Diagnosis Comments DERMATOPATHOLOGY Routine 02/19/2021 12:0 0 AM CDT documented in this encounter Results * DERMATOPATHOLOGY (02/19/2021 12:00 AM CDT) Case Report Dermatopathology Report Case: [id number] Authorizing Provider: Antonio Holman MD Collected: 02/19/2021 12:00 AM Ordering Location: [facility] D[facility] Lab Received: 02/21/2021 01:22 PM Pathologist: Sosa Corral MD Specimen: Skin, left lateral thigh 1 1:05 PM CDT DERMATOPATHOLOGY LABORATORY Final Diagnosis Specimen A. SKIN, left lateral thigh: LENTIGINOUS MELANOCYTIC NEVUS, COMPOUND TYPE, IRRITATED (COMPOUND MELANOCYTIC NEVUS WITH ARCHITECTURAL DISORDER) (D22.72) NOT PRESENT AT SAMPLED MARGIN 1 1:05 PM CDT DERMATOPATHOLOGY LABORATORY Clinical History Nevus, R/O atypical melanocytic lesion. Check margins. 1 1:05 PM T DERMATOPATHOLOGY LABORATORY Gross Description Specimen A: Received is one formalin filled container labeled with the patient's name and designated left lateral thigh. The specimen consists of a shave biopsy measuring 3g2x6yf. The margin is inked green. Jar 0. 1 1:05 PM T DERMATOPATHOLOGY LABORATORY Microscopic Description Specimen A. SKIN, left lateral thigh: This is a compound nevus. There is melanin pigment in the stratum corneum. There is architectural disorder characterized by a lentiginous proliferation of melanocytes between irregular nevus nests of cells along the dermal epidermal junction. There is underlying fibroplasia of the papillary dermis. The intradermal component is bland in appearance and matures with depth. (Compound Kraig's Nevus or Compound Dysplastic Nevus) This lesion is not present at the sampled margin of the specimen. 1 1:05 PM T DERMATOPATHOLOGY LABORATORY Disclaimer An external and internal positive and negative controls are appropriate for the histochemical, immunohistochemical and immunofluorescence stain(s) in this case (if any), except where stated explicitly. The performance characteristics of the stain(s) cited in this report were developed and its performance characteristic determined by the Dermatopathology Laboratory at [facility], directed by Dr. Nuvia Chowdhury. These tests need not be, and therefore are not, approved by the [place] Food and Drug Administration. The tests are used for clinical purposes. Billing Codes Specimen Charges Stain Charges 51909 1 1 1:05 PM CDT DERMATOPATHOLOGY LABORATORY Embedded Images 1 1:05 PM T DERMATOPATHOLOGY LABORATORY Pathology/Cytolog y TISSUE SPECIMEN FROM SKIN / Unknown 02/19/2021 02/21/2021 1:22 PM CDT us Antonio Holman MD LAB - PATHOLOGY/CYTOLOGY ORDERAB LES Final Result DERMATOPATHOLOGY LABORATORY [facility] - Department of Dermatology [address], [address] [phone] documented in this encounter Visit Diagnoses Not on filedocumented in this encounter
[2024-12-18] MEDS: ASPIRIN 81 MG CHEWABLE TABLET 324 MG PO (00:18)
[2024-12-18 00:36] LABS: Basophils Percent Auto 0.2 % (0.2-1.2); Eosinophils Percent Auto 0.5 % (0-4.4); Hematocrit 43.2 % (42.0-52.0); Hemoglobin 14.1 g/dL (14.0-18.0); Immature Granulocyte Absolute 0.02 K/mm3 (0.00-0.031); Immature Granulocyte Percent A 0.2 % (0-0.5); Lymphocytes Absolute Auto 0.62 K/mm3 (0.9-3.2); Lymphocytes Percent Auto 7.1 % (18.3-44.2); Mean Corpuscular HGB Conc 32.6 g/dl (32-36); Mean Corpuscular Hemoglobin 26.4 pg (26-34); Mean Corpuscular Volume 80.7 fl (80-100); Mean Platelet Volume 9.5 fl (7.4-10.4); Monocytes Absolute Auto 0.3 K/mm3 (0.1-0.6); Monocytes Percent Auto 3.2 % (2.6-8.5); Neutrophils Absolute Auto 7.8 K/mm3 (1.3-6.7); Neutrophils Percent Auto 88.8 % (45.5-73.1); Platelet Count Result 328 k/mm3 (150-375); Red Blood Count 5.35 M/mm3 (4.6-6.20); Red Cell Distribution Width 16.3 % (11.5-14.5); White Blood Count 8.8 K/mm3 (4.5-10.0)
[2024-12-18 00:55] LABS: Alanine Aminotransferase 23 U/L (6-50); Albumin Level 4.5 g/dL (3.5-5.1); Alkaline Phosphatase 108 U/L (38-126); Anion Gap 12 mmol/L (4-12); Aspartate Amino Transferase 27 U/L (17-59); Bilirubin,Total 1.2 mg/dL (0.2-1.3); Blood Urea Nitrogen 20 mg/dL (9-20); Carbon Dioxide 23 mmol/L (22-30); Chloride 104 mmol/L (98-107); Estimated CRCL calculation 74 ml/min; Estimated Glomerular Filt Rate > 60; Glucose 107 mg/dL (65-110); Lipase 139 U/L (23-300); Potassium 4.1 mmol/L (3.4-5.0); Sodium 139 mmol/L (137-145)
[2024-12-18 01:05] LABS: Troponin I < 0.012 ng/mL (0.000-0.034)
[2024-12-18 01:12] LABS: INR 1.2; Prothrombin Time 15.5 Seconds (11.1-14.7)
[2024-12-18 01:13] LABS: Partial Thromboplastin Time 30.6 Seconds (22.3-36.8)
--- OUTSIDE RECORDS SUMMARY | 2024-12-18 01:29 | XMS_ITS | Clinical Summary ---
Author Organization [facility] Address [address] [facility] [place] [address] Care Team Providers Care Hydrostatic Tubing Tester Name Role Phone Unavailable Primary Care Provider Unavailabl e Source Comments [facility],non-owned Affiliates and Associated Physician Practices is amultiple site organization consisting of ambulatory clinics and hospital sitesin [place], [place], [place] and [place]. This disclosure is being madepursuant to the Care Everywhere program and may not contain all information available regarding this patient. Last updated 18.[facility] Social History Tobacco Use Types Packs/Day Years [...] patient's age to complete this topic Insurance [employer]
--- OUTSIDE RECORDS SUMMARY | 2024-12-18 01:29 | XMS_ITS | Encounter Summary ---
Author Organization [facility] Address [address] [place] [address] Care Team Providers Care Credit Control Clerk Name Role Phone Unavailable Primary Care Provider Unavailabl e Encounter Details Date Type Department Care Team (Late st Contact Info) Description 02/21/2021 Lab Requisition [facility] DermPath Lab [address], [place] [phone] Antonio Holman MD [facility] [phone] Social History Tobacco Use Types Packs/Day Years [...] AM CDT) Case Report Dermatopathology Report Case: [id number] Authorizing Provider: Antonio Holman MD Collected: 02/19/2021 12:00 AM Ordering Location: [facility] DermPath Lab Received: 02/21/2021 01:22 PM Pathologist: [...] specimen consists of a shave biopsy measuring 0d9b5mt. The margin is inked green. Jar 0. [...] characteristic determined by the Dermatopathology Laboratory at [facility], directed by Dr. Nuvia Chowdhury. These tests need not be, and therefore are not, approved by the [place] Food and Drug Administration. The tests are used for clinical purposes. Billing Codes Specimen Charges Stain Charges 73560 1 1 1:05 PM CDT DERMATOPATHOLOGY LABORATORY Embedded Images 1 1:05 PM T DERMATOPATHOLOGY LABORATORY Pathology/Cytolog y TISSUE SPECIMEN FROM SKIN / Unknown 02/19/2021 02/21/2021 1:22 PM CDT us Antonio Holman MD LAB - PATHOLOGY/CYTOLOGY ORDERAB LES Final Result DERMATOPATHOLOGY LABORATORY [facility] - Department of Dermatology [address], [address] [phone] documented in this encounter Visit Diagnoses Not on filedocumented in this encounter
--- OUTSIDE RECORDS SUMMARY | 2024-12-18 01:29 | XMS_ITS | Referral Summary ---
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 Gender Identity Not on file Sexual Orientation Not on file Last Filed Vital Signs Vital Sign Reading Time Taken Comments Blood Pressure 190/88 08/24/2024 8:52 AM SENIOR VALIDATION ENGINEER Pulse 75 08/24/2024 8:52 AM SENIOR VALIDATION ENGINEER Temperature 36.7 C (98 F) 06/20/2024 3:07 PM CDT Respiratory Rate 16 08/24/2024 8:52 AM SENIOR VALIDATION ENGINEER Oxygen Saturation 98% 08/24/2024 8:52 AM SENIOR VALIDATION ENGINEER Inhaled Oxygen Concentration - - Weight 90.7 kg (200 lb) 08/24/2024 8:52 AM SENIOR VALIDATION ENGINEER Height 180.3 cm (5' 11 ) 08/24/2024 8:52 AM SENIOR VALIDATION ENGINEER Body Mass Index 27.89 08/24/2024 8:52 AM SENIOR VALIDATION ENGINEER Plan of Treatment Upcoming Encounters Date Type Department Care Team (Late st Contact Info) Description 12/21/2024 11:00 AM CDT Hospital Encounter [facility] [address] [place] [address] Yudi Jules MD [address] [place] [address] 12/21/2024 11:00 AM CDT - 12/21/2024 11:30 AM CDT Surgery [address] [address] Yudi Jules MD [address] [place] [address] COLONOSCOPY Scheduled Procedures Name Priority Associated Diagnoses Date/Ti me COLONOSCOPY Screening for colon cancer 12/21/2024 11:00 AM CDT Medical Devices Implanted Type Area Journeyman Plumber Device Identifier Shelf Expiration Date Model / Serial / Lot Depuy [employer] [id number] [place] 56mm 36mm Hip Neutral Liner Acetabular Altrx Sterile Latex Free - [id number] Implanted:Qty: 1 on 08/11/2021 by Randall Michelle MD at [facility] Right: Hip [employer]uy [employer] Inc 04/05/2026 [id number] / / [id number] Depuy [employer] [id number] [place] 56mm Sector Hip Shell Acetabular Gription Sterile Latex Free - [id number] Implanted:Qty: 1 on 08/11/2021 by Randall Michelle MD at [facility] Right: Hip [employer] 05/06/2031 [id number] / / [id number] Depuy [employer] [id number] Actis L111 Mm Collar Hip 8 High Offset Stem Femoral - [id number] Implanted:Qty: 1 on 08/11/2021 by Randall Michelle MD at [facility] Right: Hip [employer] 12/04/2030 [id number] / / [id number] Dep[employer] [id number] Articul/Jared 36mm Cementless Hip +1.5mm 08/19 Taper Head Femoral Latex Free - [id number] Implanted:Qty: 1 on 08/11/2021 by Randall Michelle MD at [facility] Right: Hip [employer] 07/06/2026 [id number] / / [id number] Procedures Procedure Name Priority Date/Time Associated Diagnosis Comments PSA SCREEN Routine 07/04/2024 7:45 AM CDT Urine frequency from Last 3 Months or Most Recently Relevant to Health Maintenance Results * PSA screen (07/04/2024 7:45 AM CDT) PSA 3.26 < OR = 4.00 ng/mL [facility] [facility] Comment: The total PSA value from this assay system is standardized against the WHO standard. The test result will be approximately 20% lower when compared to the equimolar-standardized total PSA ([place]). Comparison of serial PSA results should be [...] BLOOD ORDERABLES Fi nal Result [facility] [address] [place] [address] from Last 3 Months or Most Recently Relevant to Health Maintenance Insurance MEDICARE AETNA MEDICARE GOLD AETNA MEDICARE GOLD Care Teams Gum Machine Filler Relationship Specialty Start Date End Date Randall Wilks MD [address] [place] [address] [place] [address] PCP - General Internal Medicine 06/12/22 Randall Michelle MD Surgeon Orthopedic Surgery 08/11/21 [place] [address] [address] Surgeon General Surgery 02/04/24
--- OUTSIDE RECORDS SUMMARY | 2024-12-18 01:29 | XMS_ITS | Continuity of Care Document ---
Author Organization [facility] Address [address] [place] [address] [place] [address] Phone Care Team Providers Care Lithographic Camera Operator Name Role Phone Charly Aguayo MD Unavailable [...] Copied on Encounter Office/outpa tient Visit, [facility], [address] [place] [address] [address], [place], [place], [id number], [place] tel:[phone] [address] [place] Professional Bump OD (chief complaint) Conjunctival cyst of right eyePapilloma of right eyelidPinguecu la, bilateralAge-r elated nuclear cataract, bilateral Sep-0 0 Olivier Parks. [address] [facility], [facility] [place], [id number], [place]. tel:[phone] Referring Provider: Moy Santoyo OD, [facility] [address], [address]. tel:[phone] Office/outpa tient Visit, [facility], [address], [place], [place], [id number], tel:[phone] SEC Bud MEDELL[place] Professional growth on eye (chief complaint) Conjunctival cyst of right eyeAge-related nuclear cataract, bilateralPapil dianne of right eyelidPinguecu la, bilateral Mar-0 -202 0 Olivier Parks. [address] [facility] [place], [address], [place]. tel:[phone] Referring Provider: Moy Santoyo OD, [address], [address]. tel:[phone] [facility], [address], [place], [place], [address], tel:[phone] SEC Bud MEDELLIN Professional No Information Fe- 0 Olivier Parks. [address], [facility] [place], [address], [place]. tel:[phone] Referring Provider: Moy Santoyo OD, [address], [address]. tel:[phone] Family History Family Member Type Diagnosis Age At Onset No Information Payers Payer name Insurance type Covered democrat ID Authorjesse nuno(s) [facility] [id number] Social History Type Description Quantity Date Captured [...]
--- OUTSIDE RECORDS SUMMARY | 2024-12-18 01:29 | XMS_ITS | Clinical Summary ---
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 Gender Identity Not on file Sexual Orientation Not on file Obstetrics History Last Filed Vital Signs Vital Sign Reading Time Taken Comments Blood Pressure 190/88 08/24/2024 8:52 AM WOOLEN MILL UTILITY WORKER Pulse 75 08/24/2024 8:52 AM WOOLEN MILL UTILITY WORKER Temperature 36.7 C (98 F) 06/20/2024 3:07 PM CDT Respiratory Rate 16 08/24/2024 8:52 AM WOOLEN MILL UTILITY WORKER Oxygen Saturation 98% 08/24/2024 8:52 AM WOOLEN MILL UTILITY WORKER Inhaled Oxygen Concentration - - Weight 90.7 kg (200 lb) 08/24/2024 8:52 AM WOOLEN MILL UTILITY WORKER Height 180.3 cm (5' 11 ) 08/24/2024 8:52 AM WOOLEN MILL UTILITY WORKER Body Mass Index 27.89 08/24/2024 8:52 AM WOOLEN MILL UTILITY WORKER Plan of Treatment Upcoming Encounters Date Type Department Care Team (Late st Contact Info) Description 12/21/2024 11:00 AM CDT Hospital Encounter [address] [address] Yudi Jules MD [address] [facility] [address] [place] [address] 12/21/2024 11:00 AM CDT - 12/21/2024 11:30 AM CDT Surgery [address] [address] Yudi Jules MD [address] [facility] [place] [address] COLONOSCOPY Scheduled Procedures Name Priority Associated Diagnoses [...] 07/04/2024, 06/29/2023 Medical Devices Implanted Type Area Correction Officer Supervisor Device Identifier Shelf Expiration Date Model / Serial / Lot Depuy Orthopa[employer] Inc [id number] [place] 56mm 36mm Hip Neutral Liner Acetabular Altrx Sterile Latex Free - [id number] Implanted:Qty: 1 on 08/11/2021 by Randall Michelle MD at [facility] Right: Hip [employer] 04/05/2026 [id number] / / [id number] Depuy [employer] Inc [id number] [place] 56mm Sector Hip Shell Acetabular Gription Sterile Latex Free - [id number] Implanted:Qty: 1 on 08/11/2021 by Randall Michelle MD at [facility] Right: Hip [employer] 05/06/2031 [id number] / / [id number] Depuy [employer] [id number] Actis L111 Mm Collar Hip 8 High Offset Stem Femoral - [id number] Implanted:Qty: 1 on 08/11/2021 by Randall Michelle MD at [facility] Right: Hip [employer] 12/04/2030 [id number] / / [id number] Depuy [employer] Inc [id number] Articul/Jared 36mm Cementless Hip +1.5mm 12/14 Taper Head Femoral Latex Free - [id number] Implanted:Qty: 1 on 08/11/2021 by Randall Michelle MD at [facility] Right: Hip [employer]uy [employer] 07/06/2026 [id number] / / [id number] Procedures Procedure Name Priority Date/Time Associated Diagnosis [...] compared to the equimolar-standardized total PSA ([place]). Comparison of serial PSA results should be interpreted with this fact in mind. This test was performed using the Siemens chemiluminescent method. Values obtained from different assay methods cannot be used interchangeably. PSA levels, regardless of value, should not be interpreted as absolute evidence of the presence or absence of disease. Blood 07/04/2024 7:45 AM CDT 07/04/2024 7:45 AM CDT [facility] - 07/05/2024 7:35 AM CDT FASTING:YES FASTING: YES Randall Wilks MD LAB BLOOD ORDERABLES Fi nal Result [facility] [address] [place]án[place] [address] from Last 3 Months or Most Recently Relevant to Health Maintenance Insurance MEDICARE AETNA MEDICARE GOLD TNA MEDICARE GOLD Care Teams Supervisor Electronics Processing Relationship Specialty Start Date End Date Randall Wilks MD [address] [facility] [address] [address] PCP - General Internal Medicine 06/12/22 Randall Michelle MD Surgeon Orthopedic Surgery 08/11/21 [place] [address] [facility] [address] [address] Surgeon General Surgery 02/04/24
--- OUTSIDE RECORDS SUMMARY | 2024-12-18 01:29 | XMS_ITS | Encounter Summary ---
Author Organization [facility] Address [address] [facility] [address] Care Team Providers Care Sap Data Analyst Name Role Phone Unavailable Primary Care Provider Unavailabl e Encounter Details Date Type Department Care Team (Late st Contact Info) Description 04/17/2022 Lab Requisition [facility] [address] [facility], [place] [address] Antonio Holman MD [address] [place] [address] Social History Tobacco Use Types Packs/Day [...] AM CDT) Case Report Dermatopathology Report Case: [id number] Authorizing Provider: Antonio Holman MD Collected: 04/16/2022 12:00 AM Ordering Location: [facility] Received: 04/17/2022 08:22 AM Pathologist: [...] specimen consists of a shave biopsy measuring 8j2p6en. Jar 0. 1:17 PM CDT DERMATOPATHOLOGY LABORATORY [...] characteristic determined by the Dermatopathology Laboratory at [facility], directed by Dr. Nuvia Chowdhury. These tests need not be, and therefore are not, approved by the [place] Food and Drug Administration. The tests are used for clinical purposes. Billing Codes Specimen Charges Stain Charges 14138 1 2 1:17 PM CDT DERMATOPATHOLOGY LABORATORY Embedded Images 2 1:17 PM CDT DERMATOPATHOLOGY LABORATORY Pathology/Cytolog y TISSUE SPECIMEN FROM SKIN / Unknown 04/16/2022 04/17/2022 8:22 AM CDT Antonio Holman MD LAB - PATHOLOGY/CYTOLOGY ORDERAB LES Final Result DERMATOPATHOLOGY LABORATORY [facility] - Department of Dermatology [facility] [address] [place] [address], [address]rd [place] [address], [facility] [phone] documented in this encounter Visit Diagnoses Not on filedocumented in this encounter
--- NOTE | 2024-12-18 02:50 | ECG_ITS ---
Test Date: 2024-12-18 02:59:32 Measurements Intervals [place] Rate: 75 P: 55 VA: 220 QRS: 41 QRSD: 99 T: 31 QT: 401 QTc: 448 Interpretive Statements SINUS RHYTHM WITH FIRST DEGREE AV BLOCK POSSIBLE LEFT ATRIAL ENLARGEMENT INCOMPLETE RIGHT BUNDLE BRANCH BLOCK BORDERLINE R WAVE PROGRESSION, ANTERIOR LEADS BORDERLINE T WAVE ABNORMALITY- LATERAL LEADS Compared to ECG 07/02/2024 21:59:46 HEART RATE HAS INCREASED Electronically Signed On 12-18-2024 06:28:44 CDT by Feroz AN
--- NOTE | 2024-12-18 03:14 | ED.GENADULT ---
HPI - General Adult General Chief complaint: Chest Pain Stated complaint: i think im having a heart attack Time Seen by Provider: 12/18/24 01:15 History of Present Illness HPI narrative: Patient 69-year-old gentleman presents emergency department with chief complaint of chest discomfort. Patient reports that he ate a greasy cheeseburger and soda and some chocolate the patient states that he went to sleep woke up having epigastric and low chest discomfort patient states that it is currently resolved reports that he little bit of nausea but no vomiting the patient reports that he was trying to donate blood early nurse jordan and they told him that his blood counts may be too low to donate Related Data Home Medications ?Medication ?Instructions ?Recorded ?Confirmed ?Last Taken ?Type losartan 50 mg tablet mg 12/18/24 Unknown History meloxicam 15 mg tablet mg 12/18/24 Unknown History tamsulosin 0.4 mg capsule mg PO 12/18/24 Unknown History Allergies Allergy/AdvReac Type Severity Reaction Status Date / Time Penicillins Allergy Hives Verified 12/18/24 00:07 Review of Systems Review of Systems: A 10 system review of systems was completed on the patient and is negative except for what is stated in the HPI. Nursing and ancillary documentation was reviewed. [facility] Past Medical History Medical History Hypertension Family History Family History Mother Weak heart Social History Social History Social History: exercises daily Smoking status: Never smoker Exam Narrative: GENERAL: Well-appearing, well-nourished, and in no acute distress. HEAD: Normocephalic, atraumatic. EYES: PERRLA and EOMI. ENT: Nares clear, no rhinorrhea or epistaxis. Mucous membranes moist. NECK: Supple. CHEST: Clear to auscultation. No respiratory distress. HEART: Regular rate and rhythm. No murmur heard. Normal peripheral pulses. ABDOMEN: Soft, nontender, nondistended, normal active bowel sounds. EXTREMITIES: Normal range of motion. No edema. SKIN: Warm, dry, no rash. NEURO: No focal deficits. Alert and oriented x3. PSYCH: Normal mood and affect. Course Vital Signs Vital signs: Vital Signs Temperature 36.7 C 12/18/24 00:03 Pulse Rate 94 12/18/24 00:03 Respiratory Rate 20 12/18/24 00:03 Blood Pressure 181/87 H 12/18/24 00:03 Pulse Oximetry 99 12/18/24 00:03 Oxygen Delivery Room Air 12/18/24 00:03 Temperature 36.7 C 12/18/24 00:03 Pulse Rate 75 12/18/24 03:00 Respiratory Rate 18 12/18/24 03:00 Blood Pressure 148/79 H 12/18/24 03:00 Pulse Oximetry 96 12/18/24 03:00 Oxygen Delivery Room Air 12/18/24 00:20 Medical Decision Making [facility] Narrative Medical decision making narrative: Differential diagnosis includes ACS, noncardiac chest pain, NSTEMI, STEMI, pancreatitis, gastritis, EKG showed no acute ischemic changes Initial troponin was negative 3 hour troponin was negative Chest x-ray showed no focal infiltrate Vital Signs Vital Signs: Vital Signs Temperature 36.7 C 12/18/24 00:03 Pulse Rate 94 12/18/24 00:03 Respiratory Rate 20 12/18/24 00:03 Blood Pressure 181/87 H 12/18/24 00:03 Pulse Oximetry 99 12/18/24 00:03 Oxygen Delivery Room Air 12/18/24 00:03 Temperature 36.7 C 12/18/24 00:03 Pulse Rate 75 12/18/24 03:00 Respiratory Rate 18 12/18/24 03:00 Blood Pressure 148/79 H 12/18/24 03:00 Pulse Oximetry 96 12/18/24 03:00 Oxygen Delivery Room Air 12/18/24 00:20 Lab Data 12/18/24 00:13 12/18/24 00:13 Labs: Lab Results 12/18/24 12/18/24 Range/Units 00:13 02:55 WBC 8.8 (4.5-10.0) K/mm3 RBC 5.35 (4.6-6.20) M/mm3 Hgb 14.1 (14.0-18.0) g/dL Hct 43.2 (42.0-52.0) % MCV 80.7 (80-100) fl MCH 26.4 (26-34) pg MCHC 32.6 (32-36) g/dl RDW 16.3 H (11.5-14.5) % Plt Count 328 (150-375) k/mm3 MPV 9.5 (7.4-10.4) fl Immature Gran % (Auto) 0.2 (0-0.5) % Neut % (Auto) 88.8 H (45.5-73.1) % Lymph % (Auto) 7.1 L (18.3-44.2) % Bond % (Auto) 3.2 (2.6-8.5) % Eos % (Auto) 0.5 (0-4.4) % Baso % (Auto) 0.2 (0.2-1.2) % Lymph # (Auto) 0.62 L (0.9-3.2) K/mm3 Bond # (Auto) 0.3 (0.1-0.6) K/mm3 Eos # (Auto) 0.0 (0-0.3) K/mm3 Baso # (Auto) 0.0 (0.0-0.1) K/mm3 Abs Immat Gran (auto) 0.02 (0.00-0.031) K/mm3 Absolute Neuts (auto) 7.8 H (1.3-6.7) K/mm3 Absolute Nucleated RBC 0.000 (0.0-0.012) K/mm3 Nucleated RBC % 0.0 (0.0-0.2) % PT 15.5 H (11.1-14.7) Seconds INR 1.2 APTT 30.6 (22.3-36.8) Seconds Sodium 139 (137-145) mmol/L Potassium 4.1 (3.4-5.0) mmol/L Chloride 104 (98-107) mmol/L Carbon Dioxide 23 (22-30) mmol/L Anion Gap 12 (4-12) mmol/L BUN 20 (9-20) mg/dL Creatinine 0.86 (0.7-1.3) mg/dL Estim Creat Clear Calc 74 ml/min Estimated GFR > 60 (59 - ) Glucose 107 (65-110) mg/dL Calcium 9.0 (8.4-10.2) mg/dL Total Bilirubin 1.2 (0.2-1.3) mg/dL AST 27 (17-59) U/L ALT 23 (6-50) U/L Alkaline Phosphatase 108 (38-126) U/L Troponin I < 0.012 < 0.012 (0.000-0.034) ng/mL Total Protein 8.0 (6.3-8.2) g/dL Albumin 4.5 (3.5-5.1) g/dL Lipase 139 (23-300) U/L Discharge Plan Discharge Clinical Impression: Atypical chest pain Patient Disposition: Home Condition: Stable Instructions: Antibiotic Form, Chest Pain (ED) Patient Language: [place] Prescriptions: No Action ibuprofen 600 mg tablet 600 mg PO TID PRN (Reason: pain) Qty: 20 0RF acetaminophen 500 mg capsule 1,000 mg PO Q6H PRN (Reason: pain) Qty: 20 0RF losartan 50 mg tablet meloxicam 15 mg tablet tamsulosin 0.4 mg capsule PO Follow-up/Referrals: Lashaun,Randall Del Valle MD [Primary Care Provider] - Time of Disposition: 03:27
[2024-12-18 03:25] LABS: Troponin I < 0.012 ng/mL (0.000-0.034)
== END 2024-12-18 03:35 | disposition home or self-care (01) ==
PROVIDERS: Emergency Provider Emergency Medicine; PCP Internal Medicine
DX: R07.89 Other chest pain (principal); I10 Essential (primary) hypertension; Z79.899 Other long term (current) drug therapy; I45.10 Unspecified right bundle-branch block; R94.31 Abnormal electrocardiogram [ECG] [EKG]
CPT/HCPCS: 36415; 71046; 80053; 83690; 84484; 85025; 85610; 85730; 93005; 99284; A9270